=== PATIENT | male | born 1950 | race Caucasian/White ===

== ENCOUNTER 2020-04-17 13:18 | Emergency (ER) | payer MEDICARE ==
[~2020-04-17] VITALS: Ht 177.8 cm; Wt 81.4 kg
[2020-04-17 14:02] LABS: BASOPHILS % (AUTO) 1 % (0-1); EOSINOPHILS % (AUTO) 2 % (1-7); LYMPHOCYTES % (AUTO) 44 % (22-44); MEAN CORPUSCULAR HEMOGLOBIN 31.7 pg (27.5-34.5); MEAN CORPUSCULAR HGB CONC 32.8 g/dL (33.2-36.2); MEAN PLATELET VOLUME 8.1 fL (7.4-10.4); MONOCYTES % (AUTO) 6 % (2-9); NEUTROPHILS % (AUTO) 48 % (42-75); PLATELET COUNT 207 x10^3/uL (130-400); RED BLOOD COUNT 5.28 x10^6/uL (4.38-5.82); RED CELL DISTRIBUTION WIDTH 13.2 % (9.4-14.8)
--- NOTE | 2020-04-17 14:03 | NUR ---
PT TO ROOM FROM LOBBY AT THIS TIME.
[2020-04-17 14:04] LABS: ALANINE AMINOTRANSFERASE 28 U/L (12-78); ALBUMIN 4.2 g/dL (3.4-5.0); ANION GAP 4 mmol/L (5-15); CALCIUM 9.2 mg/dL (8.5-10.1); CHLORIDE 108 mmol/L (98-107); CREATININE 1.03 mg/dL (0.7-1.3)
[2020-04-17 14:06] LABS: ALKALINE PHOSPHATASE 67 U/L (45-117); BILIRUBIN,TOTAL 0.8 mg/dL (0.2-1.0); TOTAL PROTEIN 7.5 g/dL (6.4-8.2)
[2020-04-17 14:09] LABS: MD NO
--- NOTE | 2020-04-17 14:10 | NUR ---
DR GAUTAM AT BS FOR EXAM
--- NOTE | 2020-04-17 14:15 | NUR ---
TO MRI PER W/C.
[2020-04-17] MEDS ORDERED: ATOR20TA86 PO (14:52)
[2020-04-17] MEDS ORDERED: [UNRECOGNIZED DRUG - OTHER] (14:52)
[2020-04-17] MEDS ORDERED: VITAMIN C (14:52)
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
[2020-04-17 15:00] VITALS: BP 123/72
== END 2020-04-17 15:46 | disposition home or self-care (01) ==
LOC: ED 14:13
DX: G50.8 Other disorders of trigeminal nerve (principal)
CPT/HCPCS: 36415; 70551; 80053; 85025; 99284

== ENCOUNTER 2020-07-06 18:44 | Emergency (ER) | payer MEDICARE ==
[~2020-07-06] VITALS: Ht 177.8 cm; Wt 83.1 kg
[~2020-07-06 18:44] MED LIST: ATOR20TA86 PO; VITAMIN C; [UNRECOGNIZED DRUG - OTHER]
[2020-07-06] MEDS ORDERED: ATOR20TA37 PO (19:24)
--- NOTE | 2020-07-06 19:24 | NUR ---
PT TO XRAY AT THIS TIME
--- NOTE | 2020-07-06 19:25 | NUR ---
pt came into ed today after a fall onto his right knee, post fall, r knee is non weight bearing, Right knee noted to be swollen and a small abrasion noted. pt denies LOC or head trauma with fall. pt to radiology at this time. at bs. manoj. yamileth.
--- NOTE | 2020-07-06 19:51 | NUR ---
pt back from radiology, ERP at bs for poc and discussion of rads. pt nad, denies additional questions or needs, medicated per trang wcnini.
[2020-07-06] MEDS ORDERED: HYDROmorphone 1 MG/ML, 1ML INJ ONE (19:56)
[2020-07-06] MEDS ORDERED: HYDROmorphone 1 MG/ML, 1ML INJ IM ONE (20:00)
[2020-07-06 21:05] VITALS: BP 113/50
--- NOTE | 2020-07-06 21:07 | NUR ---
Patient given discharge instructions and they have confirmed that they understand the instructions. Patient ambulatory with [facility]UTCH. nad, denies additional needs at this time, all questions answered appropriately. no personal belongings left in room after dc
[2020-07-06] MEDS ORDERED: ONDANSETRON ODT 4 MG ONE (21:19)
[2020-07-06] MEDS ORDERED: OXYcodone/APAP 5/325MG TABLET ONE (21:19)
[2020-07-06] MEDS ORDERED: OXYcodone/APAP 5/325MG TABLET PO ONE (21:30)
[2020-07-06] MEDS ORDERED: ONDANSETRON ODT 4 MG PO ONE (21:30)
== END 2020-07-06 21:42 | disposition home or self-care (01) ==
LOC: ED 20:09
DX: M66.261 Spontaneous rupture of extensor tendons, right lower leg (principal); M79.89 Other specified soft tissue disorders; I49.3 Ventricular premature depolarization; R94.31 Abnormal electrocardiogram [ECG] [EKG]
CPT/HCPCS: 29505; 73564; 93005; 96372; 99283; J1170; Q0162

== ENCOUNTER → 2020-07-07 | Outpatient (CLI) | payer MEDICARE ==
[~2020-07-07] MED LIST changes: +ATOR20TA37 PO
== END | disposition home or self-care (01) ==
LOC: CFH 15:46
PROVIDERS: ATTEND Physician Assistant Surgical
DX: S76.111A Strain of right quadriceps muscle, fascia and tendon, initial encounter (principal); M22.41 Chondromalacia patellae, right knee; M25.461 Effusion, right knee; X58.XXXA Exposure to other specified factors, initial encounter; Y93.89 Activity, other specified; Y92.89 Other specified places as the place of occurrence of the external cause; Y99.8 Other external cause status

== ENCOUNTER 2020-07-13 11:48 | Day surgery (SDC) | payer MEDICARE ==
[~2020-07-13] VITALS: Ht 177.8 cm; Wt 84.0 kg
[~2020-07-13 11:48] MED LIST changes: +EPINEPHRINE 1 MG/ML, 1ML ONE; +LIDOCAINE/PF 1%, 30ML ONE
[2020-07-13] MEDS ORDERED: ROPIvacaine/PF 0.5%, 30 ML ONE (12:04)
[2020-07-13 12:09] VITALS: BP 127/75
[2020-07-13] MEDS ORDERED: CHLORHEXIDINE 15 ML UDC MM STA (12:12)
[2020-07-13] MEDS ORDERED: LACTATED RINGERS 1,000 ML IV SCH (12:30)
[2020-07-13] MEDS ORDERED: FENTANYL PF 100 MCG/2ML ONE ×4 (12:41→15:06)
[2020-07-13 12:45] VITALS: BP 127/75
[2020-07-13] MEDS ORDERED: ONDA4TAB7 PO (13:03)
[2020-07-13] MEDS ORDERED: OXYC5CAP2 PO (13:03)
[2020-07-13] MEDS ORDERED: DEXAMETHASONE 4 MG/ML, 1ML ONE (13:20)
[2020-07-13] MEDS ORDERED: CEFAZOLIN 1,000 MG ONE (13:20)
[2020-07-13] MEDS ORDERED: PROPOFOL 10 MG/ML, 20ML ONE (13:20)
[2020-07-13] MEDS ORDERED: ONDANSETRON 2MG/ML, 2ML ONE (13:20)
[2020-07-13] MEDS ORDERED: OXYcodone 5 MG/5 ML ORAL.SOL UDC PO PRN (14:00)
[2020-07-13] MEDS ORDERED: PROMETHAZINE 25 MG/ML, 1ML IVPush PRN (14:00)
[2020-07-13] MEDS ORDERED: KETOROLAC 30 MG/1 ML IVPush PRN (14:00)
[2020-07-13] MEDS ORDERED: HYDROcodone/APAP 7.5-325MG/15ML UDC PO PRN (14:00)
[2020-07-13] MEDS ORDERED: HYDROmorphone 1 MG/ML, 1ML INJ IVPush PRN (14:00)
[2020-07-13] MEDS ORDERED: MEPERIDINE/PF 25MG/ML,1ML ONE (14:32)
[2020-07-13] MEDS: MEPERIDINE/PF 25MG/0.5ML IVPush PRN ×2 (14:36→15:03)
[2020-07-13] MEDS ORDERED: hydrALAzine 20 MG/ML, 1ML ONE (14:54)
[2020-07-13] MEDS: FENTANYL PF 100 MCG/2ML IV PRN ×4 (14:56→15:31)
[2020-07-13] MEDS ORDERED: KETOROLAC 30 MG/1 ML ONE (14:59)
[2020-07-13] MEDS ORDERED: hydrALAzine 20 MG/ML, 1ML IV PRN (15:00)
[2020-07-13] MEDS ORDERED: OXYcodone 5 MG/5 ML ORAL.SOL UDC ONE (15:06)
[2020-07-13] MEDS ORDERED: DIAZEPAM 5 MG TABLET ONE (16:21)
[2020-07-13] MEDS ORDERED: DIAZEPAM 5 MG TABLET PO ONE (16:30)
== END 2020-07-13 18:55 | disposition home or self-care (01) ==
LOC: OUT 11:48
PROVIDERS: ATTEND Orthopaedic Surgery
DX: S76.111A Strain of right quadriceps muscle, fascia and tendon, initial encounter (principal); M25.561 Pain in right knee; M19.90 Unspecified osteoarthritis, unspecified site; X58.XXXA Exposure to other specified factors, initial encounter; Y93.89 Activity, other specified; Y92.89 Other specified places as the place of occurrence of the external cause; Y99.8 Other external cause status; Z88.8 Allergy status to other drugs, medicaments and biological substances; Z72.89 Other problems related to lifestyle; Z79.899 Other long term (current) drug therapy; Z20.828 Contact with and (suspected) exposure to other viral communicable diseases
CPT/HCPCS: 27380; 87635; C1713; J0690; J1100; J1885; J2175; J2405; J2704; J2795; J3010; J7120; J0171

== ENCOUNTER → 2020-11-03 | Outpatient (CLI) | payer MEDICARE ==
[~2020-11-03] MED LIST changes: -EPINEPHRINE 1 MG/ML, 1ML ONE; -LIDOCAINE/PF 1%, 30ML ONE; +ONDA4TAB7 PO; +OXYC5CAP2 PO
== END | disposition home or self-care (01) ==
LOC: CFH 10:01
PROVIDERS: ATTEND Psychiatry & Neurology Neurology
DX: H02.423 Myogenic ptosis of bilateral eyelids (principal); H53.2 Diplopia; H51.8 Other specified disorders of binocular movement; H25.813 Combined forms of age-related cataract, bilateral
CPT/HCPCS: 70480